=== PATIENT | male | born 1980 | race Caucasian/White ===

== ENCOUNTER 2023-08-12 08:39 | Day surgery (SDC) | payer BC ==
[2023-08-12] MEDS: LACTATED RINGERS 1,000 ML IV ONE (08:49)
--- NOTE | 2023-08-12 09:37 | ANESTHESIA ---
Pre-Anesthesia VS, & Labs - Diagnosis DESIRES STERILIZATION - Procedure VASECTOMY Vital Signs: Temp Pulse Resp BP Pulse Ox O2 Flow Rate 36.6 C 69 16 121/78 97 08/12/23 08:54 08/12/23 08:54 08/12/23 08:54 08/12/23 08:54 08/12/23 08:54 Height: 6 ft 2 in Weight (kg): 98 kg Body Mass Index: 27.7 BMI Classification: Overweight - NPO >8 hours Home Medications and Allergies Home Medications: Ambulatory Orders Baclofen [Lioresal] 10 mg PO TID 08/06/23 Baclofen [Lioresal] 10 mg PO TID 08/06/23 Allergies/Adverse Reactions: Allergies Allergy/AdvReac Type Severity Reaction Status Date / Time No Known Drug Allergies Allergy Verified 08/12/23 08:09 Anes History & Medical History - Anesthetic History Anesthesia Complications: reports: No previous complications (COLONOSCOPY ONLY) Family history of Anesthesia Complications: Denies - Medical History Cardiovascular: reports: None Pulmonary: reports: None Gastrointestinal: reports: None Urinary: reports: Other Musculoskeletal: reports: None Endocrine/Autoimmune: reports: None Skin: reports: None Smoking Status: Never smoker Psychosocial: reports: No issues indicated (DOES NOT DRINK ALCOHOL), Cannabis (USES A TINCTURE, DOES NOT SMOKE IT) - Surgical History Orthopedic: reports: Other Results - EKG Results EKG Comparison: Reviewed EKG Exam General: Alert, Oriented x3 Dental: WNL Mouth Openin Fingerbreadth Neck Mobility: Reduced Mallampati classification: II Thyromental Distance: 4-6 cm Respiratory: Lungs clear Cardiovascular: Regular rate Plan Anesthesia Type: General Consent for Procedure(s) Verified and Reviewed: Yes Code Status: Attempt Resuscitation ASA classification: 1-Healthy patient Is this case an emergency?: No
[2023-08-12] MEDS ORDERED: NALOXONE 0.4 MG/ML VIAL IVP PRN ×2 (09:38→10:34)
[2023-08-12] MEDS ORDERED: ePHEDrine 50 MG/ML VIAL IVP PRN ×2 (09:38→10:34)
[2023-08-12] MEDS ORDERED: METOCLOPRAMIDE 10 MG/2 ML VIAL IVP PRN (09:38)
[2023-08-12] MEDS ORDERED: HYDROmorphone 0.5 MG/0.5 ML SYRINGE IVP PRN ×2 (09:38→10:34)
[2023-08-12] MEDS ORDERED: fentaNYL 100 MCG/2 ML VIAL IVP PRN ×2 (09:38→10:34)
[2023-08-12] MEDS ORDERED: ATROPINE ABBOJECT 1 MG/10 ML SYRINGE IVP PRN ×2 (09:38→10:34)
[2023-08-12] MEDS ORDERED: ONDANSETRON 4 MG/2 ML VIAL IVP PRN ×3 (09:38→10:38)
[2023-08-12] MEDS ORDERED: MORPHINE 2 MG/ML CARPUJECT IVP PRN ×2 (09:38→10:34)
[2023-08-12] MEDS ORDERED: LACTATED RINGERS 1,000 ML IV SCH ×2 (10:00→11:00)
[2023-08-12] MEDS: LIDOCAINE 1% 50 ML MDV SUBQ ONE ×2 (10:10)
[2023-08-12] MEDS: LACTATED RINGERS 500 ML IV ONE (10:30)
[2023-08-12 10:40] VITALS: O2SAT 98
--- NOTE | 2023-08-12 10:42 | Discharge Plan ---
Discharge Plan Problem Reviewed?: Yes Disposition: 01 Home, Self Care Condition: Good Activity Restrictions: Additional Comments (as instructed) Shower Restrictions: No Driving Restrictions: No Instruction Topics: Vasectomy No Scalpel No Smoking: If you smoke, Please STOP! Call for help.
--- NOTE | 2023-08-12 10:43 | OPERATIVE REPORT ---
Operative Report - General Procedure Date: 08/12/23 Planned Procedure: Bilateral Vasectomy Pre-Op Diagnosis: Elective Sterilization Procedure Performed: Bilateral no scalpel Vasectomy Post Op Diagnosis: Elective sterilization - Procedure Note Primary Surgeon: Lee Anesthesia Provider: JENNIE Prince Anesthesia Technique: General LMA Pathology: none Estimated Blood Loss (mL): 0 Findings: normal vasectomy Complications: none - Other Other Information/Narrative: After informed consent obtained patient brought to the OR and laid in supine position. The patient was anesthetized per anesthesia protocols and then prepped and draped in usual sterile fashion. A formal timeout was performed reconfirming the patient, procedure and laterality He is vas deferens identified through his right hemiscrotum. 1% lidocaine was used as local. Using a sharp mosquito is scrotal tissue was dissected away and his vas sheath was grasped using a ring clamp. This was sharply incised and the vas was identified and pulled out. It was clamped on both sides and the intervening 1 cm segment was cauterized away. The ends were cauterized as well. The ends were suture-ligated with chromic suture and then the distal end was buried using a fascial interposition stitch using 3-0 chromic suture. There was no bleeding. His skin was closed using a 3-0 chromic horizontal mattress s titch. An identical procedure performed on the left side. Band-Aids were placed.
[2023-08-12 11:17] VITALS: BP 103/68
--- NOTE | 2023-08-12 13:56 | ANESTHESIA POST OP EVALUATION ---
Anesthesia Post Eval - Post Anesthesia Eval Vitals: Last Vital Signs Temp 36.3 C L 08/12/23 11:05 Pulse 79 08/12/23 11:05 Resp 14 08/12/23 11:05 BP 103/68 08/12/23 11:05 Pulse Ox 98 08/12/23 11:05 O2 Flow Rate CV Function Including HR & BP: Stable Pain Control: Satisfactory Nausea & Vomiting: Negative Mental Status: Baseline Respiratory Status: Airway Patent Hydration Status: Satisfactory Anesthesia Complications: None
== END 2023-08-12 08:40 | disposition home or self-care (01) ==
LOC: OR 08:39 → SDS 08:40
PROVIDERS: ATTEND Urology
DX: Z30.2 Encounter for sterilization (principal)
CPT/HCPCS: 55250; J7120

== ENCOUNTER 2023-08-22 13:37 | Outpatient (CLI) | payer BC ==
--- NOTE | 2023-08-22 14:11 | Sleep Patient Instructions ---
Sleep Center Visit Summary - Patient Visit Information Reason for Visit: Initial consult for evaluation of sleep disordered breathing and other sleep issues. - Patient Instructions Instructions Attached: Sleep Study, Sleep Study Home Monitor Additional Instructions: You will be completing a sleep study, either an in-lab polysomnography (PSG) or home sleep study (HST). You will follow-up in the sleep care office after the sleep study is completed to hear the results and talk about therapy, if needed. You will be called by our office staff to schedule this appointment, but you may contact us with any questions. - Clinic Information Contact: [facility] [address] [place] [id number] [email or web address] T: [phone]
--- NOTE | 2023-08-22 14:14 | SLEEP CARE CONSULTATION ---
Information from patient questionnaire entered by Megan Aburto. I have reviewed and concur with the information entered by Megan Aburto. This document represents the service I personally performed and the decisions made by me, Valerie Green ARNP. History of Present Illness Service Date and Time: 08/22/2023 1337 Reason for Visit: New patient Chief Complaint: reports: Unrefreshed sleep, Snoring, Observed pauses in breathing Date of Onset: 1YRS Usual bedtime: 1631-0754 Time it takes to fall asleep: 30MINS Snores at night: Yes Observed to quit breathing while asleep: Yes Number of times waking at night: 1-2 Reasons for waking at night: reports: Gasping for air (2 occasions but not for many months), Other (UNKNOWN). denies: Choking, Snoring Toss, Turn, or Twitch while sleeping: Yes Recalls having dreams: Yes Usually gets out of bed at: 0700 Feels refreshed in the morning: Yes Morning headache: No Sleepy or fatigued during the day: Yes (afternoons) Ever fallen asleep while driving: No Takes day naps: No Prior sleep studies: No Additional HPI information: I had the pleasure of seeing JOY CLEVELAND today regarding the possibility of him having a sleep disorder. His current complaints are unrefreshed sleep, snoring and observed pauses in breathing. He says he has had an increase of snoring. It has been more pronounced and his noticed some pauses in breathing. The snoring has seemed to improve over the last few weeks since his mother and his stress over trying to manage dealing with her health has resolved. He feels he is sleeping much better now. He does takes 2 Benadryl tablets to help him go to sleep. He has for several years and he is considering weaning off of the Benadryl. He does have family members with sleep apnea. 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 Patient is and lives in [place]. Have you smoked in the past 12 months: No Alcohol use: No Caffeine use: Yes Caffeine amount and frequency: 4CUPS DAILY IN MORNING Family History Family history of sleep disordered breathing: Yes Family Hx Sleep Apnea: Mother: Snoring, Sleep apnea - Treated, Grandparent: Snoring Allergies and Home Medications Known drug allergies: No Drug allergies reviewed: Yes Home medication list reviewed: Yes (as listed) Allergy and home medication list: Allergies No Known Drug Allergies Allergy (Verified 08/22/23 13:40) Home Medications Baclofen [Lioresal] 10 mg PO TID 08/06/23 [History] Melatonin See Rx Instructions .ROUTE .COMPLEX 08/22/23 [History] Multivitamin See Rx Instructions .ROUTE .COMPLEX 08/22/23 [History] Onabotulinumtoxina [Botox] See Rx Instructions .ROUTE .COMPLEX 08/22/23 [H istory] diphenhydrAMINE [Benadryl] See Rx Instructions .ROUTE .COMPLEX 08/22/23 [History] Review of Systems Weight gain over past 5 years: 15 Weight loss over past 5 years: 10 Cardiovascular: denies: high blood pressure Gastrointestinal: reports: heartburn Neurological: reports: head trauma (concussions, nothing major), other (DYSTONIA ). denies: headaches Ear/Nose/Throat: reports: injury to nose ("cracked" nose 2 times). denies: tonsillectomy Physical Exam Vital signs obtained and entered by: MEGAN Pederson MA Blood Pressure: 146/90 (RIGHT ARM) Cuff size: regular Heart Rate: 89 O2 Saturation: 98 Height: 6 ft 1 in Weight: 220 lb Body Mass Index: 29.0 BMI Classification: Overweight Neck circumference: 16 Nostrils: patent to airflow Mouth and throat: narrow oropharynx Soft palate: long Hard palate: normal Uvula: normal Uvula visualization: 25% Mallampati Class III Tongue: enlarged in size with teeth horton on lateral edges Tonsils: small Heart: regular rate and rhythm Lungs: clear bilaterally Impression and Plan 1. Suspected Obstructive Sleep Apnea-Hypopnea Syndrome, as suggested by a history of loud and irregular snoring, observed cessation of breath while asleep, unrefreshed sleep and cognitive impairment. Narrow oropharynx and obesity are common predisposing factors for obstructive sleep apnea-hypopnea syndrome. I recommend proceeding to polysomnography to confirm the diagnosis and to assess severity. If the patient has significant sleep disordered breathing, a manual CPAP titration study will also be performed to find the optimal treatment pressure. I informed the patient of what the sleep studies involve and after some discussion, obtained agreement to proceed. The pathophysiology of obstructive sleep apnea-hypopnea syndrome was discussed with the patient and health risks of cardiovascular and cerebrovascular disease if not treated. 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 Patient agreed to plan. * Schedule polysomnography. * Avoid long distance driving or driving when feeling sleepy. * Avoid alcohol, sedative and muscle relaxant around bedtime. * Attempt to lose weight. * Review instructions provided by trained office staff on how to prepare for the sleep study. * Return for follow-up after sleep study completed. Counseling Topics: Weight loss health impact Plan: PSG/HST and follow up Visit Type: In Office Time Spent with Patient (minutes): 30 Provider Statement: I spent 100% of the Face to Face Visit with the patient with greater than 50% spent counseling the patient and coordination of care.
[2023-08-22 14:19] VITALS: BP 146/90; O2SAT 98
== END 2023-08-22 13:38 | disposition home or self-care (01) ==
LOC: SC 13:37
PROVIDERS: ATTEND Nurse Practitioner Family
DX: G47.8 Other sleep disorders (principal); R06.83 Snoring; R06.81 Apnea, not elsewhere classified; I48.91 Unspecified atrial fibrillation; E66.3 Overweight; Z68.29 Body mass index [BMI] 29.0-29.9, adult
CPT/HCPCS: 99203; 99212

== ENCOUNTER 2023-10-17 20:48 | Outpatient (CLI) | payer BC | END 2023-10-17 20:49 | disposition home or self-care (01) | LOC: SC 20:48 | PROVIDERS: ATTEND Nurse Practitioner Family | DX: R06.83 Snoring (principal); G47.8 Other sleep disorders; R06.81 Apnea, not elsewhere classified; E66.3 Overweight; Z68.29 Body mass index [BMI] 29.0-29.9, adult | CPT/HCPCS: 95810 ==

== ENCOUNTER 2023-11-08 14:27 | Outpatient (CLI) | payer BC ==
--- NOTE | 2023-11-08 15:08 | Sleep Patient Instructions ---
Sleep Center Visit Summary - Patient Visit Information Reason for Visit: Sleep study follow-up - Patient Instructions Instructions Attached: Snoring Tips Prevent Additional Instructions: Your sleep study today was negative for significant sleep disordered breathing. You were found to have episodes of snoring. There are different ways to control snoring including weight loss, oral devices made by a dentist or surgical options through ENT specialist. You should not use oral devices that do not fit properly because they can affect your bite. You should also check insurance coverage of oral devices for snoring because they may not be cover well. You may obtain a referral to an ENT specialist through your primary provider. Follow-up as needed. - Clinic Information Contact: [facility] [address] [place] [address] [email or web address] T: [phone]
--- NOTE | 2023-11-08 15:10 | SLEEP CARE CONSULTATION ---
Information from patient questionnaire entered by Radhames Wing. I have reviewed and concur with the information entered by Radhames Wing. This document represents the service I personally performed and the decisions made by , Valerie Green ARNP. History of Present Illness Service Date and Time: 11/08/2023 1427 Initial [place] Sleepiness Scale score: 1 (08/22/2023) Current [place] Sleepiness Scale score: 0 (11/08/2023) Additional HPI information: JOY CLEVELAND returns for follow up and results of the recently performed polysomnography done on 10/17/23. The patient was informed of the following findings: No significant sleep disord ered breathing with an average AHI of 0.5 and sonia oxygen saturation of 90%. He did not sleep supine during the study. I explained the pathophysiology behind obstructive sleep apnea. Patient does not have sleep apnea and was advised how weight gain could increase the risk of developing sleep apnea in the future. I strongly encouraged the patient to lose weight. Patient has loud snoring. Snoring can be reduced by weight loss. Weight loss is best achieved with diet consult. Patient instructed to contact PCP for referral. Snoring can also be treated with an oral appliance from a dentist. Advised to check insurance coverage. In addition, an ENT evaluation can be do to see if other treatment is indicated. Patient does not drink alcohol. Patient was cautioned about risks of drowsy driving until sleepiness symptoms resolve. Patient denies drowsy driving. Sleep Study - Results Prior sleep studies: No Polysomnography/Home Sleep Study results: IMPRESSION: The quality of the study is good. The patient had reduced sleep efficiency due to several prolonged awakenings during the night. The sleep architecture was relatively normal considering the first-night effect. Respiratory monitoring showed no significant sleep disordered breathing (AHI = 0.5) or hypoxia (sonia oxygen saturation of 90%). The patient did not sleep supine during this study (supine AHI = 0.0; non-supine = 0.45). Snore was loud in intensity. There was no significant periodic leg movement of sleep. Cardiac rhythm was normal sinus rhythm without significant arrhythmia. No abnormal behavior (parasomnia) observed during the night. CONCLUSIONS and RECOMMENDATIONS: 1. This is a normal in-laboratory polysomnography. However, because the patient did not sleep supine during this study, significant sleep disordered breathing during supine sleep cannot be ruled out. Clinical correlation advised. Allergies and Home Medications Known drug allergies: No Drug allergies reviewed: Yes Home medication list reviewed: Yes (no changes) Allergy and home medication list: Allergies No Known Drug Allergies Allergy Review of Systems Review of systems same as previous: Yes (no changes) Physical Exam Vital signs obtained and entered by: Valerie Roque NP Blood Pressure: 131/89 Cuff size: long (left arm) Heart Rate: 72 O2 Saturation: 98 Height: 6 ft 1 in Weight: 217 lb 12.8 oz Body Mass Index: 28.7 BMI Classification: Overweight Impression and Plan 1. Snoring but no significant sleep disordered breathing. Patient advised that often weight loss will reduce snoring as well as apnea risk. An oral appliance can also be used for snoring. This would require a dental consultation. Patient cautioned not to use other online appliances as can cause bite issues. Patient is advised to check if insurance will cover. An ENT consult can also be helpful to determine if any other treatment is an option. 2. Overweight, unspecified. Currently patients BMI is 28.7. Obesity increases the risk of apnea, CPAP pressure requirements and overall health risks especially cardiovascular and diabetes. Thus patient is advised to lose weight. * Attempt to lose weight * Avoid alcohol consumption near bedtime * The patient is cautioned about driving until sleepiness is completely resolved. * Return as needed for follow up. This note may have been all or partially generated using voice recognition software. Although every effort is made to edit content, measurement psychologist errors may occur. Occasional wrongword or "soundalike" substitutions may have occurred due to the inherent limitations of voice recognition software. Please read the note carefully and recognize, using context, where these substitutions have occurred. Counseling Topics: Weight loss health impact Follow up with Sleep Care in: as needed Visit Type: In Office Time Spent with Patient (minutes): 14 Provider Statement: I spent 100% of the Face to Face Visit with the patient with greater than 50% spent counseling the patient and coordination of care.
[2023-11-08 15:14] VITALS: BP 131/89; O2SAT 98
== END 2023-11-08 14:28 | disposition home or self-care (01) ==
LOC: SC 14:27
PROVIDERS: ATTEND Nurse Practitioner Family
DX: R06.83 Snoring (principal); E66.3 Overweight; Z68.28 Body mass index [BMI] 28.0-28.9, adult
CPT/HCPCS: 99212